=== PATIENT | female | born 1970 | race African-American/Black ===

== ENCOUNTER 2017-04-18 14:24 | Emergency (ER) | payer OTHER ==
[~2017-04-18 14:24] MED LIST: AMBI5TAB PO; LISI10TA PO; NIFE10 PO
[2017-04-18] MEDS ORDERED: NIFE20 PO (14:57)
[2017-04-18] MEDS ORDERED: DIAZ2 PO (14:57)
[2017-04-18] MEDS ORDERED: LISI10TA3 PO (14:57)
[2017-04-18] MEDS ORDERED: AMBI5TAB PO (14:57)
--- NOTE | 2017-04-18 15:00 | PD ---
HPI Chief Complaint: Abdominal Pain Time Seen by Provider: 14:49 Travel History International Travel<30 days: No Contact w/Intl Traveler<30days: No Traveled to known affect area: No History of Present Illness HPI This 46-year-old female is complaining of abdominal pain. She had an episode today of pain which is quite severe. It was across the abdomen and bilateral. It lasted for about 5 minutes. She vomited. She had a similar episode about 2 days ago. She did not have an episode yesterday. She has had some loose stools. There has not been any foreign travel. She has a history of hysterectomy. She is not having pain now PFSH Past Medical History Heart Rhythm Problems: No Cardiac Catheterization: No Cardiovascular Problems: Yes (HIGH BP) High Cholesterol: Yes Congestive Heart Failure: No Diabetes: No Diminished Hearing: No Hypertension: Yes Immunizations Current: Yes Myocardial Infarction: No ?: Not : 3 Para: 3 Miscarriage: 0 : 0 Past Surgical History Coronary Artery Bypass Graft: No Gynecologic Surgery: Yes (hysterectomy 2014) Hysterectomy: Yes Social History Alcohol Use: Yes (occ) Tobacco Use: No Substance Use: No Allergies-Medications (Allergen,Severity, Reaction): Coded Allergies: No Known Allergies (Verified , 04/18/17) Reported Meds & Prescriptions Reported Meds & Active Scripts Active Reported Valium (Diazepam) 2 Mg Tab 2 Mg PO BID PRN Ambien (Zolpidem Tartrate) 5 Mg Tab 5 Mg PO HS PRN Nifedipine 20 Mg Cap 60 Mg PO DAILY Lisinopril 10 Mg Tab 10 Mg PO DAILY Review of Systems General / Constitutional: No: Fever, Chills Eyes: No: Diploplia, Blurred Vision HENT: No: Headaches, Vertigo Cardiovascular: No: Chest Pain or Discomfort, Palpitations Respiratory: No: Cough, Shortness of Breath Gastrointestinal: Positive: Vomiting, Abdominal Pain Genitourinary: No: Urgency, Frequency Musculoskeletal: No: Myalgias, Arthralgias Skin: No Rash Physical Exam Narrative GENERAL: Well-developed female SKIN: Focused skin assessment warm/dry. HEAD: Atraumatic. Normocephalic. EYES: Pupils equal and round. No scleral icterus. No injection or drainage. ENT: No nasal bleeding or discharge. Mucous membranes pink and moist. NECK: Trachea midline. No JVD. CARDIOVASCULAR: Regular rate and rhythm. No murmur appreciated. RESPIRATORY: No accessory muscle use. Clear to auscultation. Breath sounds equal bilaterally. GASTROINTESTINAL: Abdomen soft, non-tender, nondistended. Hepatic and splenic margins not palpable. MUSCULOSKELETAL: No obvious deformities. No clubbing. No cyanosis. No edema. NEUROLOGICAL: Awake and alert. No obvious cranial nerve deficits. Motor grossly within normal limits. Normal speech. PSYCHIATRIC: Appropriate mood and affect; insight and judgment normal. Data Data Orders Complete Blood Count With Diff (04/18/17 14:57) Comprehensive Metabolic Panel (04/18/17 14:57) Lipase (04/18/17 14:57) Urinalysis - C+S If Indicated (04/18/17 14:57) Urine Culture (04/18/17 15:10) Ondansetron Inj (Zofran Inj) (04/18/17 15:45) Labs Laboratory Tests Test 04/18/17 04/18/17 15:10 15:14 Urine Collection Type CLEAN CATCH Urine Color YELLOW Urine Turbidity CLEAR Urine pH 5.5 Urine Specific [place] 1.009 Urine Protein NEG mg/dL Urine Glucose (UA) NEG mg/dL Urine Ketones NEG mg/dL Urine Occult Blood NEG Urine Nitrite NEG Urine Bilirubin NEG Urine Leukocyte Esterase NEG Urine WBC 0-2 /hpf Urine Squamous Epithelial 6-8 /hpf Cells Urine Bacteria MOD /hpf Urine Hyaline Casts 6-9 /lpf Microscopic Urinalysis Comment CULTURE INDICATED Urine Collection Time 15:10 White Blood Count 3.7 TH/MM3 Red Blood Count 4.59 MIL/MM3 Hemoglobin 14.5 GM/DL Hematocrit 42.8 % Mean Corpuscular Volume 93.1 FL Mean Corpuscular Hemoglobin 31.5 PG Mean Corpuscular Hemoglobin 33.8 % Concent Red Cell Distribution Width 13.1 % Platelet Count 260 TH/MM3 Mean Platelet Volume 9.5 FL Neutrophils (%) (Auto) 54.4 % Lymphocytes (%) (Auto) 30.6 % Monocytes (%) (Auto) 11.0 % Eosinophils (%) (Auto) 2.5 % Basophils (%) (Auto) 1.5 % Neutrophils # (Auto) 2.0 TH/MM3 Lymphocytes # (Auto) 1.1 TH/MM3 Monocytes # (Auto) 0.4 TH/MM3 Eosinophils # (Auto) 0.1 TH/MM3 Basophils # (Auto) 0.1 TH/MM3 CBC Comment DIFF FINAL Differential Comment Sodium Level 131 MEQ/L Potassium Level 4.0 MEQ/L Chloride Level 96 MEQ/L Carbon Dioxide Level 24.9 MEQ/L Anion Gap 10 MEQ/L Blood Urea Nitrogen 7 MG/DL Creatinine 0.76 MG/DL Estimat Glomerular Filtration 100 ML/MIN Rate Random Glucose 106 MG/DL Calcium Level 9.2 MG/DL Total Bilirubin 0.3 MG/DL Aspartate Amino Transf 157 U/L (AST/SGOT) Alanine Aminotransferase 82 U/L (ALT/SGPT) Alkaline Phosphatase 95 U/L Total Protein 8.5 GM/DL Albumin 3.5 GM/DL Lipase 118 U/L [facility] Medical Decision Making Medical Screen Exam Complete: No Emergency Medical Condition: No Medical Record Reviewed: No Differential Diagnosis Differential includes gastroenteritis, nonspecific abdominal pain, food poisoning Narrative Course Lab work is unremarkable. Patient complains of some nausea but is not having pain at this time. I don't think a CT isn't indicated at this time. I will provide some Zofran and subsequently released. Diagnosis Primary Impression: Nonspecific abdominal pain Departure Forms: Tests/Procedures, Work Release Enter return to work date: Apr 20, 2017 Scripts Ondansetron Odt (Zofran Odt)4 Mg Tab4 Mg SL Q8HR PRN (Nausea/Vomiting) #10 TAB Ref 0 Prov:Bala Ruff MD 04/18/17 Disposition: 01 DISCHARGE HOME Condition: Stable Bala Ruff MD Apr 18, 2017 15:00
[2017-04-18 15:20] LABS: BLOOD, URINE NEG (NEG); GLUCOSE,URINE NEG (NEG); KETONE, URINE NEG (NEG); NITRITE,URINE NEG (NEG); PH, URINE 5.5 (5.0-8.5)
[2017-04-18 15:20] LABS: BASOPHIL # 0.1 TH/MM3 (0-0.2); BASOPHIL % 1.5 % (0.0-2.0); EOSINOPHIL # 0.1 TH/MM3 (0-0.4); EOSINOPHIL % 2.5 % (0.0-4.0); HEMATOCRIT 42.8 % (35.0-46.0); HEMO FLAGS DIFF FINAL; LYMPH % 30.6 % (9.0-44.0); LYMPHOCYTE # 1.1 TH/MM3 (1.0-4.8); MEAN CELL VOLUME 93.1 FL (80.0-100.0); MEAN CORPUSCULAR HEMOGLOBIN 31.5 PG (27.0-34.0); MEAN CORPUSCULAR HGB CONC 33.8 % (32.0-36.0); NEUT % 54.4 % (16.0-70.0); PLATELET COUNT 260 TH/MM3 (150-450); RED BLOOD COUNT 4.59 MIL/MM3 (4.00-5.30); RED CELL DISTRIBUTION WIDTH 13.1 % (11.6-17.2); WHITE BLOOD COUNT 3.7 TH/MM3 (4.0-11.0)
[2017-04-18 15:30] LABS: BACTERIA, URINE MOD /hpf; COMMENT (UR) CULTURE INDICATED; CULTURE IF INDICATED CULTURE INDICATED; METHOD OF COLLECTION CLEAN CATCH; URINE COLOR YELLOW (YELLW/STRAW); WBC, URINE 0-2 /hpf (0-5)
[2017-04-18 15:31] LABS: CHLORIDE 96 MEQ/L (98-107); SODIUM (NA) 131 MEQ/L (136-145)
[2017-04-18 15:34] LABS: ANION GAP 10 MEQ/L (5-15); BICARBONATE 24.9 MEQ/L (21.0-32.0); BLOOD UREA NITROGEN 7 MG/DL (7-18)
[2017-04-18 15:37] LABS: ALT (GPT) 82 U/L (10-53); AST (GOT) 157 U/L (15-37); GLOMERULAR FILTRATION RATE 100 ML/MIN (>89)
[2017-04-18 15:39] LABS: TOTAL BILIRUBIN ADULT 0.3 MG/DL (0.2-1.0)
[2017-04-18 15:40] LABS: ALKALINE PHOSPHATASE 95 U/L (45-117)
[2017-04-18] MEDS ORDERED: ONDANSETRON HCL 4 MG/2 ML VIAL IV PUSH ONE (15:45)
[2017-04-18] MEDS ORDERED: ZOFR4TAB3 SL (15:46)
== END 2017-04-18 16:14 | disposition home or self-care (01) ==
LOC: PHED 14:24
DX: R10.9 Unspecified abdominal pain (principal); R11.2 Nausea with vomiting, unspecified; R19.7 Diarrhea, unspecified; I10 Essential (primary) hypertension; E78.00 Pure hypercholesterolemia, unspecified; Z86.79 Personal history of other diseases of the circulatory system
CPT/HCPCS: 80053; 81001; 83690; 85025; 87086; 96374; 99284; J2405

== ENCOUNTER 2017-08-03 09:17 | Emergency (ER) | payer OTHER ==
[~2017-08-03] VITALS: Ht 154.9 cm; Wt 74.5 kg
[~2017-08-03 09:17] MED LIST changes: +DIAZ2 PO; -LISI10TA PO; +LISI10TA3 PO; -NIFE10 PO; +NIFE20 PO; +ZOFR4TAB3 SL
[2017-08-03 09:26] VITALS: BP 200/100; PULSE 78; RESP 16; TEMP 97.6; O2SAT 99
[2017-08-03] MEDS ORDERED: ROBA500T PO (10:11)
[2017-08-03] MEDS ORDERED: IBUP1TAB7 PO (10:11)
--- NOTE | 2017-08-03 10:13 | PD ---
HPI Chief Complaint: Musculoskeletal Complaint Time Seen by Provider: 09:51 Travel History International Travel<30 days: No Contact w/Intl Traveler<30days: No Traveled to known affect area: No History of Present Illness HPI 46-year-old female here for evaluation of left-sided neck pain and muscle spasms times one day. She reports her symptoms in the past. She denies injury or trauma to the area. She denies headache, dizziness, fever, paresthesia or weakness of the upper extremities. Pain is worse with movement of the neck from left to right and slightly relieved with rest. Symptoms severity is moderate. PFSH Past Medical History Heart Rhythm Problems: No Cardiac Catheterization: No Cardiovascular Problems: Yes (hypertension) High Cholesterol: Yes Congestive Heart Failure: No Diabetes: No Diminished Hearing: No Hypertension: Yes Immunizations Current: Yes Myocardial Infarction: No Influenza Vaccination: No ?: Not : 3 Para: 3 Miscarriage: 0 : 0 Past Surgical History Coronary Artery Bypass Graft: No Gynecologic Surgery: Yes (hysterectomy 2014) Hysterectomy: Yes Social History Alcohol Use: Yes (occ) Tobacco Use: No Substance Use: No Allergies-Medications (Allergen,Severity, Reaction): Coded Allergies: No Known Allergies (Verified Adverse Reaction, Unknown, 08/03/17) Reported Meds & Prescriptions Reported Meds & Active Scripts Active Robaxin (Methocarbamol) 500 Mg Tab 500 Mg PO TID Ibuprofen 800 Mg Tab 800 Mg PO Q6HR PRN Reported Nifedipine 20 Mg Cap 60 Mg PO DAILY Lisinopril 10 Mg Tab 10 Mg PO DAILY Review of Systems Except as stated in HPI: all other systems reviewed are Neg Physical Exam Narrative GENERAL: Well-nourished, well-developed patient. SKIN: Focused skin assessment warm/dry. HEAD: Normocephalic. EYES: No scleral icterus. No injection or drainage. NECK: Supple, trachea midline. No JVD or lymphadenopathy. Cervical midline tenderness. Left trapezius muscle spasm. Tenderness of the cervical paraspinous musculature on the left side CARDIOVASCULAR: Regular rate and rhythm without murmurs, gallops, or rubs. RESPIRATORY: Breath sounds equal bilaterally. No accessory muscle use. GASTROINTESTINAL: Abdomen soft, non-tender, nondistended. MUSCULOSKELETAL: No cyanosis, or edema. Equal hand grasp. Normal strength and sensation in extremities. BACK: No cervical, thoracic, lumbar spine tenderness. Without obvious deformity. No CVA tenderness. Data Data Last Documented VS Vital Signs Date Time Temp Pulse Resp B/P (MAP) Pulse Ox O2 Delivery O2 Flow Rate FiO2 08/03/17 09:26 97.6 78 16 200/100 (133) 99 Orders Orders Ketorolac Inj (Toradol Inj) (08/03/17 10:15) Orphenadrine Inj (Norflex Inj) (08/03/17 10:15) MDM Medical Decision Making Medical Screen Exam Complete: Yes Emergency Medical Condition: Yes Differential Diagnosis Cervical strain, trapezius muscle spasm, cervical spine fracture very unlikely Narrative Course 46 year old female here with left-sided neck pain and muscle spasm times one day. She denies injury trauma. On exam she has a left-sided trapezius muscle spasm with tenderness. She is a normal neurologic exam. Differential upper back/neck strain Patient's blood pressure was elevated in triage. Patient has history of hypertension and takes 2 medications to control her pressure. She reports she did not take her morning doses this morning. She was offered a dose in the ER for which she declined. She reports she will take them when she gets home. She denies headache, dizziness, chest pain, shortness breath. Diagnosis Primary Impression: Neck muscle strain Qualified Codes: S16.1XXA - Strain of muscle, fascia and tendon at neck level , initial encounter Referrals: Primary Care Physician Departure Forms: Tests/Procedures, Work Release Enter return to work date: Aug 06, 2017 Additional Instructions: Take medications as prescribed. Use ice or heat for symptom relief. Avoid heavy lifting or strenuous activity. Follow-up with her primary doctor. Pressure was elevated at today's visit. Take your blood pressure medication once you get home Scripts Methocarbamol (Robaxin) 500 Mg Tab 500 MG PO TID for Muscle Spasm, #15 TAB 0 Refills Prov: Marija Osborn 08/03/17 Ibuprofen (Ibuprofen) 800 Mg Tab 800 MG PO Q6HR Y for PAIN, #40 TAB 0 Refills Prov: Marija Osborn 08/03/17 Disposition: 01 DISCHARGE HOME Condition: Stable Marija Osborn Aug 03, 2017 10:13
[2017-08-03] MEDS ORDERED: ORPHENADRINE INJ 60 MG/2 ML AMP IM ONE (10:15)
[2017-08-03] MEDS ORDERED: KETOROLAC TROMETHAMINE 60 MG/2 ML (IM) VIAL IM ONE (10:15)
== END 2017-08-03 10:34 | disposition home or self-care (01) ==
LOC: PHEFT 09:17
DX: S16.1XXA Strain of muscle, fascia and tendon at neck level, initial encounter (principal); I10 Essential (primary) hypertension; X58.XXXA Exposure to other specified factors, initial encounter
CPT/HCPCS: 96372; 99284; J1885; J2360

== ENCOUNTER 2017-10-15 05:57 | Emergency (ER) | payer OTHER ==
[~2017-10-15] VITALS: Ht 170.2 cm; Wt 74.0 kg
[~2017-10-15 05:57] MED LIST changes: -AMBI5TAB PO; -DIAZ2 PO; +IBUP1TAB7 PO; +ROBA500T PO; -ZOFR4TAB3 SL
[2017-10-15 06:11] VITALS: BP 145/83; PULSE 100; RESP 18; TEMP 98.2; O2SAT 98
[2017-10-15 06:29] VITALS: BP 145/83; PULSE 100; RESP 18; TEMP 98.2; O2SAT 98
--- NOTE | 2017-10-15 06:57 | PD ---
HPI Chief Complaint: ENT Complaint Time Seen by Provider: 06:56 Travel History International Travel<30 days: No Contact w/Intl Traveler<30days: No Traveled to known affect area: No History of Present Illness HPI 47-year-old female came to the emergency room with history of chills, sore throat, bilateral earache since past 4 days. Patient is here to get tested for flu. Also she didn't go to work today and hence need a work note. Vital signs are relatively stable. Patient does not appear to be in any significant distress. [facility] Past Medical History Narrative Medical List of her past medical, surgical, social and family history is reviewed from the nursing note. Heart Rhythm Problems: No Cardiac Catheterization: No Cardiovascular Problems: Yes (hypertension) High Cholesterol: Yes Congestive Heart Failure: No Diabetes: No Diminished Hearing: No Hypertension: Yes Immunizations Current: Yes Myocardial Infarction: No Influenza Vaccination: No ?: Not : 3 Para: 3 Miscarriage: 0 : 0 Past Surgical History Coronary Artery Bypass Graft: No Gynecologic Surgery: Yes (hysterectomy 2014) Hysterectomy: Yes Family History Family Myocardial Infarction: No Social History Alcohol Use: Yes (occ) Tobacco Use: No Substance Use: No Allergies-Medications (Allergen,Severity, Reaction): Coded Allergies: No Known Allergies (Verified Adverse Reaction, Unknown, 08/03/17) Comments No known drug allergies. Reported Meds & Prescriptions Reported Meds & Active Scripts Active Robaxin (Methocarbamol) 500 Mg Tab 500 Mg PO TID Ibuprofen 800 Mg Tab 800 Mg PO Q6HR PRN Reported Nifedipine 20 Mg Cap 60 Mg PO DAILY Lisinopril 10 Mg Tab 10 Mg PO DAILY Narrative Medication List of her home medications reviewed from the nursing note. Review of Systems Except as stated in HPI: all other systems reviewed are Neg General / Constitutional: Positive: Fever, Chills HENT: Positive: Sore Throat, Earache Physical Exam Narrative GENERAL: Awake, alert, no obvious distress SKIN: Focused skin assessment warm/dry. HEAD: Atraumatic. Normocephalic. EYES: Pupils equal and round. No scleral icterus. No injection or drainage. ENT: No nasal bleeding or discharge. Mucous membranes pink and moist. No erythema or exudates in her pharynx. Bilateral TMs are pale and shiny. NECK: Trachea midline. No JVD. CARDIOVASCULAR: Regular rate and rhythm. No murmur appreciated. RESPIRATORY: No accessory muscle use. Clear to auscultation. Breath sounds equal bilaterally. GASTROINTESTINAL: Abdomen soft, non-tender, nondistended. Hepatic and splenic margins not palpable. MUSCULOSKELETAL: No obvious deformities. No clubbing. No cyanosis. No edema. NEUROLOGICAL: Awake and alert. No obvious cranial nerve deficits. Motor grossly within normal limits. Normal speech. PSYCHIATRIC: Appropriate mood and affect; insight and judgment normal. Data Data Last Documented VS Orders Orders Group A Rapid Strep Screen (10/15/17 06:16) Influenzae A/B Antigen (10/15/17 06:16) Strep Culture (Group A) (10/15/17 06:22) Ed Discharge Order (10/15/17 07:02) MDM Medical Decision Making Medical Screen Exam Complete: Yes Emergency Medical Condition: Yes Medical Record Reviewed: Yes Differential Diagnosis Influenza, strep, viral illness Narrative Course 7:04 AM rapid influenza and strep are back are negative. Patient will be discharged home. She needs a work note which will be given. Procedures EKG Prior to Arrival: No Diagnosis Primary Impression: Viral illness Referrals: Primary Care Physician Additional Instructions: Return to the ER if condition worsens or any other new concerns. Otherwise follow up with her primary care. Drink lots of fluid. Take Tylenol/Motrin/ ibuprofen/Advil for fever and/or pain. Disposition: 01 DISCHARGE HOME Condition: Stable Chris Diego MD Oct 15, 2017 06:57
== END 2017-10-15 07:06 | disposition home or self-care (01) ==
LOC: PHED 05:57
DX: B34.9 Viral infection, unspecified (principal); I10 Essential (primary) hypertension; E78.00 Pure hypercholesterolemia, unspecified
CPT/HCPCS: 87081; 87804; 87880; 99283